=== PATIENT | male | born 1940 | race Caucasian/White ===

== ENCOUNTER 2017-04-05 11:37 | Day surgery (SDC) | payer OTHER ==
[2017-04-05] MEDS ORDERED: Midazolam 2 MG/2 ML VIAL ONE ×2 (14:34→15:31)
[2017-04-05] MEDS ORDERED: Iodixanol 320 MG/ML 200 ML BOTTLE IV ONE (14:35)
--- NOTE | 2017-04-05 18:37 | CP.SDSHP ---
Same Day Surgery H & P - History Proposed Procedure: see Manuel consult. no change - Allergies Allergies: Allergies No Known Allergies Allergy (Verified 04/05/17 15:09) Short Stay Discharge - Short Stay Discharge Admitting Diagnosis/Reason for Visit: PVD Disposition: HOME/ ROUTINE
[2017-04-05] MEDS ORDERED: (Novolin R) Insulin Human Regular 100 units/ml vial ONE (18:45)
--- NOTE | 2017-04-05 20:35 | OP ---
PROCEDURE DATE: 04/05/2017 PERFORMING PHYSICIAN: Zahida Emanuel MD REFERRING PHYSICIAN: Pernell Ludwig MD PREOPERATIVE DIAGNOSIS: Peripheral vascular disease with gangrene of the toe. POSTOPERATIVE DIAGNOSIS: Peripheral vascular disease with gangrene of the toe. PROCEDURE PERFORMED: Retrograde access left common femoral artery, selective catheter placement in t he right popliteal artery via contralateral approach, abdominal aortography with bilateral iliofemora l runoff, bilateral lower extremity angiography, placement of distal embolic protection device in the right popliteal artery, atherectomy of the mid right superficial femoral artery, drug-coated balloon angioplasty, and right superficial femoral artery. COMPLICATIONS: None. HISTORY: This patient is a 76-year-old male with a past medical history of ischemic cardiomyopathy w ith coronary artery disease and defibrillator implantation, end-stage renal disease on hemodialysis, hypertension, and peripheral vascular disease, who has developed gangrene of the 2nd toe of the right foot. The patient is referred for angiography and possible intervention. DESCRIPTION OF PROCEDURE: After obtaining informed consent, the patient was prepped and draped in th e usual sterile fashion. The left groin was anesthetized with 2% lidocaine solution. A 5-Ivorian she ath was inserted into the left common femoral artery via modified Seldinger technique. An Omni Flush catheter was advanced to infrarenal abdominal aorta. Abdominal aortography was performed. The cath eter was positioned at the iliac bifurcation. Bilateral iliofemoral runoff was performed. Selective catheter placement followed by angiography and intervention are described separately below. FINDINGS: The infrarenal abdominal aorta is free of aneurysm or dissection. The renal arteries are tortuous with calcification in the left mid renal artery. The common iliac arteries have been stente d bilaterally. The stents appear widely patent. The right external iliac arteries have also been st ented. Bilateral common femoral arteries exhibit eccentric calcification. In the left leg, the left superficial femoral artery has been stented. There have been multiple segmental stents which extend to the proximal popliteal artery. The stented segment is patent. In the right leg, there is extensive calcification noted throughout the right superficial femoral art tawny. The mid right superficial femoral artery has a critical stenosis of 90%. The popliteal artery has mild disease. Right popliteal artery has mild disease. There is 2-vessel runoff to the right fo ot with diseased tibial vessel. INTERVENTION: An Omni Flush catheter was used to direct a stiff-angled Glidewire to the contralatera l right superficial femoral artery. The sheath was exchanged for a 6 x 45 cm [employer] rodriguez th, which was selectively placed in the right common femoral artery. Heparin was given. An Herrenschmiede C YourEncoremand ES guidewire was used to navigate across through the stenosis in the mid right superficial fem oral artery and was positioned in the right peroneal artery. A 0.018 inch Trailblazer catheter was a dvanced over the guidewire and selectively placed in the right popliteal artery. The guidewire was r emoved and a AwesomePieceI Viper guidewire was then advanced and positioned with the distal tip in the right pe roneal artery. An Herrenschmiede Emboshield distal embolic protection device was loaded onto the guidewire a fter removal of the Trailblazer catheter and the Emboshield was deployed in the distal right poplitea l artery. A CSI 1.5 Solid Harbine atherectomy device was loaded onto the guidewire. Atherectomy was performed, 2 separate passes, at slow and medium speed. The CSI device was removed. Angiography post-atherectom y revealed residual 40% stenosis. A drug-coated balloon angioplasty was then performed with a 4 x 10 0 mm Lutonix drug-coated balloon with inflation x 2 minutes. The balloon was then removed. The eddie ography revealed widely patent and expanded lumen of the right mid superficial femoral artery. Prese rved tibial runoff was noted. No evidence of distal embolization was noted. The filter was retrieve d and the sheath was exchanged for a 6-Ivorian sheath. This was secured to the left groin. There were no complications and the patient tolerated the procedure well. CONCLUSION: Successful atherectomy with drug-coated balloon angioplasty of the mid right superficial femoral artery. PLAN: The patient will continue with antiplatelet therapy. The patient will likely require amputati on of the necrotic toe. However, this procedure will improve wound healing. Zahida Emanuel MD cc: [id number] TT: 04/05/2017 20:35:10 ramone
[2017-04-06 11:22] VITALS: RESP 18; O2SAT 97
== END 2017-04-05 20:55 | disposition short-term general hospital (02) ==
LOC: C.CATHLAB 11:37
PROVIDERS: ATTEND Internal Medicine Cardiovascular Disease
DX: I70.262 Atherosclerosis of native arteries of extremities with gangrene, left leg (principal)
CPT/HCPCS: 37227; 82948; J1644; J2250; J3010; Q9966